=== PATIENT | female | born 1955 | race Two or more races ===

== ENCOUNTER 2023-05-26 09:33 | Emergency (ER) | payer MEDICARE, OTHER ==
[~2023-05-26] VITALS: Ht 160 cm; Wt 91.5 kg
[2023-05-26 10:40] VITALS: BP 185/97; PULSE 96; RESP 16; TEMP 98.1; O2SAT 97
== END 2023-05-26 12:38 | disposition home or self-care (01) ==
LOC: ER 09:33
DX: S23.41XA Sprain of ribs, initial encounter (principal); S00.03XA Contusion of scalp, initial encounter; S30.0XXA Contusion of lower back and pelvis, initial encounter; E78.5 Hyperlipidemia, unspecified; W10.8XXA Fall (on) (from) other stairs and steps, initial encounter; Y93.89 Activity, other specified; Y92.89 Other specified places as the place of occurrence of the external cause; Y99.8 Other external cause status
CPT/HCPCS: 70450; 71101; 72220